=== PATIENT | female | born 1985 | race Caucasian/White ===

== ENCOUNTER 2022-06-24 14:02 | Outpatient (CLI) | payer MEDICAID, SELFPAY ==
--- NOTE | 2022-06-24 15:16 | PC.OBNST ---
NST Note NST Note Start: 06/24/22 14:15 Freq: ONCE Status: Active Protocol: Document 06/24/22 14:15 KRISH (Rec: 06/24/22 15:16 [email or web address] [id number]) NST Note 8 Para (# of births) 6 EDC 06/29/22 Gestational Age In Weeks & Days 39 Weeks & 2 Days Patient Presented with Complaint(s) of Other Other Complaints Patient came to center due to FHR fluctuating between 140s-180s. Patient saw another provider, where an NST /BPP was performed (BPP 01/26), but came to the center for reassurance. Reactive Yes Appropriate for Gestational Age Yes JOHN Lo Date 06/24/22 Reactive Yes Appropriate for Gestational Age Yes JOHN Kirk Date 06/24/22 OB NST charge Yes Complete NST Note via Write Note Yes The provider's electronic signature indicates the NST is reactive/appropriate for gestational age. *Note to provider: If an addendum is required, open the patient's chart and click on the note under the Nurse/Allied Health tab.
--- NOTE | 2022-06-24 15:49 | PM.OBLDTN ---
OB - Triage/Final Diagnosis Visit Information Time Seen by Provider: 14:30 Date Seen: 06/24/22 Date of evaluation: 06/24/22 Narrative: The patient is a 36 year old 8 para 6016 at 39 2/7 weeks gestation by LMP, who presents with concerns about heart rate. She is accompanied by her and mastic floor layer, Lyla White. The patient tells me that she noticed some bright red bleeding yesterday while she was showering. She was not experiencing any more frequent contractions than is typical for her in the late 3rd trimester. She denied leakage of fluid. Her fetus was active. She listened with a fetus scope to heart rate, and observed that it was higher than usual, at about 180 beats per minute. She contacted her mastic floor layer, who came to see her and confirmed that the heart rate was consistently in the 170s and 180s. Because the weather was week, they went in to [facility] in [place], [place], for further evaluation. While there, she reportedly had a reactive nonstress test. A physician performed a bedside ultrasound, attempting to do a biophysical profile, but had some difficulty operating the machine and stated that the fetus had at least a 6/6, but did not see 1 of the parameters, possibly breathing movements by her report. She believes that the amniotic fluid volume was normal. The patient is planning a home . She delivered her 1st 5 children within the hospital setting, and then had a home with her last delivery. 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 She reportedly had a normal anatomy screen ultrasound around 20 weeks gestation. She did not have a level 2 ultrasound or echo. Evaluation Vital signs: Noted in [employer]. Comments: General appearance: Alert, cooperative white female in no acute distress. Abdomen: Soft, gravid, size consistent with term gestation, nontender. A limited OB ultrasound was performed at the bedside using a transabdominal transducer. A single, living, intrauterine gestation was identified in a vertex presentation, OP position. Placenta was noted to be anterior fundal, without significant abnormalities. Amniotic fluid volume was grossly normal. Four-quadrant JAIRO was 13 cm. Fetus (Single) Heart Rate Baseline: 150 [employer] Display Specialist Variability: Moderate (6-25) Monitor Accelerations: Present Monitor Decelerations: None Final Diagnosis (1) NST (non-stress test) reactive: Status: Acute Problem details: The patient was informed that the NST was reactive, and that the amniotic fluid volume by bedside ultrasound was normal. Overall, the testing was reassuring. (2) Term : Status: Acute Problem details: The patient plans a home delivery with a mastic floor layer. She was encouraged to return with any additional concerns, decreased movement, or labor as needed.
== END 2022-06-24 15:10 | disposition home or self-care (01) ==
LOC: OB OUT 14:09 → OB 14:14
PROVIDERS: PCP Family Medicine; Visit Provider Obstetrics & Gynecology
DX: O36.8330 Maternal care for abnormalities of the fetal heart rate or rhythm, third trimester, not applicable or unspecified (principal); Z3A.39 39 weeks gestation of pregnancy
CPT/HCPCS: 59025; 76815; 99213

== ENCOUNTER 2022-11-26 11:36 | Outpatient (CLI) | payer MEDICAID, SELFPAY | END 2022-11-26 11:37 | disposition home or self-care (01) | LOC: NFLDREF 11-29 15:31 | PROVIDERS: PCP Family Medicine; Referring Provider Family Medicine; Visit Provider Advanced Practice Midwife | DX: Z52.000 Unspecified donor, whole blood (principal) | CPT/HCPCS: 99001 ==